=== PATIENT | female | born 1950 | race Caucasian/White ===

== ENCOUNTER 2017-07-21 09:48 | Inpatient (IN) | payer BC, OTHER ==
[2017-07-21] MEDS ORDERED: DUONEB 0.5 MG/3 MG ONE (13:15)
[2017-07-21] MEDS ORDERED: SALINE 3% 15 ML NEB TX ONE (13:15)
[2017-07-21] MEDS ORDERED: DUONEB 0.5 MG/3 MG NEB SCH ×2 (13:19→14:08)
[2017-07-21] MEDS: SALINE 3% 15 ML NEB TX NEB ONE ×2 (13:19→13:27)
[2017-07-21] MEDS ORDERED: REFLEX: PROVENTIL NEB & PulmiCORT NEB~ NEB SCH (14:08)
[2017-07-21] MEDS ORDERED: NS 1/2 1000 ML IV 1,000 ML IV SCH (14:08)
[2017-07-21 14:26] VITALS: BMI 46.8
--- NOTE | 2017-07-21 14:32 | RAD ---
Examination: Chest, PA and lateral views History: Hypertension, weakness SOB Comparison reference: None Findings: The heart is enlarged, the pulmonary vessels congested and indistinct. There is a small lef t pleural effusion. A left subclavian injection port terminates in the SVC. Impression: Cardiomegaly with pulmonary vascular and pleural changes of CHF. No definite pneumonia. Reported By:
[2017-07-21 15:25] LABS: BASOPHILS # (AUTO) 0.1 X10^3/uL (0.0-0.1); BASOPHILS % (AUTO) 0.7 % (0.2-1.0); EOSINOPHILS # (AUTO) 0.1 x10^3/uL (0.0-0.2); EOSINOPHILS % (AUTO) 0.7 % (0.9-2.9); HEMOGLOBIN 11.5 g/dL (12.0-16.0); LYMPHOCYTES # (AUTO) 1.5 X10^3/uL (1.3-2.9); LYMPHOCYTES % (AUTO) 8.9 % (21.0-51.0); MEAN CORPUSCULAR HEMOGLOBIN 28.8 pg (27.0-34.0); MEAN CORPUSCULAR HGB CONC 32.9 g/dL (33.0-35.0); MEAN CORPUSCULAR VOLUME 87.5 fL (80.0-100.0); MEAN PLATELET VOLUME 8.2 fL (7.4-11.0); MONOCYTES # (AUTO) 0.7 x10^3/uL (0.3-0.8); MONOCYTES % (AUTO) 4.1 % (0.0-13.0); NEUTROPHILS % (AUTO) 85.6 % (42.0-75.0); PLATELET COUNT 419 X10^3/uL (150.0-450.0); RED CELL DISTRIBUTION WIDTH 13.8 % (11.6-16.5); WHITE BLOOD COUNT 16.4 X10^3/uL (3.6-10.0)
[2017-07-21] MEDS: TORADOL 30 MG VIAL IVP SCH ×2 (15:26→21:10)
[2017-07-21] MEDS: LEVAQUIN PREMIX IV 750 MG 750 MG/150 ML BAG IV SCH (15:27)
[2017-07-21] MEDS: ROBITUSSIN DM PO SCH ×3 (15:31→21:10)
[2017-07-21] MEDS: NS 1/2 500 ML IV 500 ML IV SCH (15:31)
[2017-07-21 15:42] LABS: ALANINE AMINOTRANSFERASE 20 Units/L (12-78); ALBUMIN 2.6 g/dL (3.4-5.0); ALKALINE PHOSPHATASE 106 Units/L (46-116); ASPARTATE AMINO TRANSFERASE 18 Units/L (15-37); BLOOD UREA NITROGEN 12 mg/dL (7-18); CALCIUM 8.4 mg/dL (8.5-10.1); CARBON DIOXIDE 24.1 mmol/L (21-32); CHLORIDE 102 mmol/L (98-107); COR CA(FOR HYPOALB) 9.5 mg/dL (8.5-10.1); COR NA(FOR HYPERGLY) 137 mmol/L (136-145); CREATININE 0.82 mg/dL (0.55-1.02); SODIUM 136 mmol/L (136-145); TOTAL PROTEIN 6.9 g/dL (6.4-8.2); eGFR BLACK RACES > 60 (>60); eGFR NON BLACK RACES > 60 (>60)
[2017-07-21] MEDS: DUONEB 0.5 MG/3 MG NEB SCH ×2 (16:45→20:33)
[2017-07-21] MEDS: PULMICORT NEB TX 0.5 MG NEB SCH (20:33)
[2017-07-22] MEDS: DUONEB 0.5 MG/3 MG NEB SCH ×6 (01:10→20:49)
[2017-07-22] MEDS: NS 1/2 500 ML IV 500 ML IV SCH ×2 (01:47→21:36)
[2017-07-22] MEDS ORDERED: NS 500 ML IV 500 ML IV ONE (04:45)
[2017-07-22] MEDS ORDERED: NS 1/2 1000 ML IV 1,000 ML IV ONE (04:53)
[2017-07-22 06:16] LABS: ALANINE AMINOTRANSFERASE 18 Units/L (12-78); ALBUMIN 2.5 g/dL (3.4-5.0); ALKALINE PHOSPHATASE 98 Units/L (46-116); ASPARTATE AMINO TRANSFERASE 15 Units/L (15-37); BLOOD UREA NITROGEN 11 mg/dL (7-18); CALCIUM 8.5 mg/dL (8.5-10.1); CARBON DIOXIDE 25.6 mmol/L (21-32); CHLORIDE 103 mmol/L (98-107); COR CA(FOR HYPOALB) 9.7 mg/dL (8.5-10.1); CREATININE 0.91 mg/dL (0.55-1.02); SODIUM 139 mmol/L (136-145); TOTAL PROTEIN 6.8 g/dL (6.4-8.2); eGFR BLACK RACES > 60 (>60); eGFR NON BLACK RACES > 60 (>60)
[2017-07-22 06:19] LABS: BASOPHILS % (AUTO) 0.3 % (0.2-1.0); EOSINOPHILS # (AUTO) 0.3 x10^3/uL (0.0-0.2); EOSINOPHILS % (AUTO) 2.1 % (0.9-2.9); HEMATOCRIT 33.1 % (36.0-47.0); LYMPHOCYTES % (AUTO) 16.5 % (21.0-51.0); MEAN CORPUSCULAR HEMOGLOBIN 28.9 pg (27.0-34.0); MEAN CORPUSCULAR HGB CONC 33.2 g/dL (33.0-35.0); MEAN CORPUSCULAR VOLUME 87.3 fL (80.0-100.0); MEAN PLATELET VOLUME 8.7 fL (7.4-11.0); MONOCYTES # (AUTO) 1.1 x10^3/uL (0.3-0.8); NEUTROPHILS # (AUTO) 8.9 x10^3/uL (2.2-4.8); NEUTROPHILS % (AUTO) 72.1 % (42.0-75.0); PLATELET COUNT 429 X10^3/uL (150.0-450.0); RED CELL DISTRIBUTION WIDTH 13.7 % (11.6-16.5); WHITE BLOOD COUNT 12.4 X10^3/uL (3.6-10.0)
--- NOTE | 2017-07-22 06:53 | RAD ---
Examination: AP chest History: CAP Comparison reference 07/21/2017 Findings: Continued cardiac prominence with interval improvement in pulmonary vascular dilatation. Th ere is still suggestion of small left pleural reaction. No pneumothorax or consolidation. Stable posi tion of left subclavian line. Impression: Interval improvement. No new abnormality noted. Reported By:
[2017-07-22] MEDS: TUSSIONEX PENNKINETIC SUSP PO PRN ×2 (07:06→20:16)
[2017-07-22] MEDS: LEVAQUIN PREMIX IV 750 MG 750 MG/150 ML BAG IV SCH (08:18)
[2017-07-22] MEDS: PULMICORT NEB TX 0.5 MG NEB SCH ×2 (09:08→20:49)
[2017-07-22] MEDS ORDERED: VALSARTAN 320 MG PO SCH (09:30)
[2017-07-22] MEDS ORDERED: ESOMEPRAZOLE MAGNESIUM 20 MG PO SCH (09:30)
[2017-07-22] MEDS: ROBITUSSIN DM PO SCH ×4 (09:32→20:15)
[2017-07-22] MEDS ORDERED: PHARMACY CONSULT - TPN XX SCH (10:00)
[2017-07-22] MEDS: PROCALAMINE 3 % 1,000 ML IV SCH (10:36)
[2017-07-22] MEDS: SINGULAIR TAB 10 MG PO SCH (10:36)
[2017-07-22] MEDS: LOPID PO SCH ×2 (10:36→20:15)
[2017-07-22] MEDS: CYMBALTA PO SCH ×2 (10:37→20:15)
[2017-07-22] MEDS: ALBUMIN HUMAN 25%- 100ML 100 ML IV SCH (10:37)
[2017-07-22] MEDS: THYROID PORK PO SCH (10:38)
[2017-07-22] MEDS ORDERED: TORADOL 30 MG VIAL IVP ONE (16:32)
--- NOTE | 2017-07-22 21:06 | DR.UPDATE ---
H&P Update History and Physical Update: WAS SEEN IN THE OFFICE ON 07/21/17. A H&P WAS COMPLETED PRIOR TO ADMISSION. PATIENT HAS BEEN SEEN AND EXAMINED WITH NO CHANGES NOTED TO H&P. Changes noted: NO Yes with the following:
[2017-07-23] MEDS: DUONEB 0.5 MG/3 MG NEB SCH ×6 (00:58→20:36)
[2017-07-23 06:09] LABS: BASOPHILS % (AUTO) 0.3 % (0.2-1.0); EOSINOPHILS # (AUTO) 0.5 x10^3/uL (0.0-0.2); EOSINOPHILS % (AUTO) 6.1 % (0.9-2.9); HEMOGLOBIN 9.7 g/dL (12.0-16.0); LYMPHOCYTES # (AUTO) 1.6 X10^3/uL (1.3-2.9); LYMPHOCYTES % (AUTO) 19.1 % (21.0-51.0); MEAN CORPUSCULAR HEMOGLOBIN 29.4 pg (27.0-34.0); MEAN CORPUSCULAR HGB CONC 33.5 g/dL (33.0-35.0); MEAN CORPUSCULAR VOLUME 87.8 fL (80.0-100.0); MEAN PLATELET VOLUME 8.7 fL (7.4-11.0); MONOCYTES # (AUTO) 0.9 x10^3/uL (0.3-0.8); MONOCYTES % (AUTO) 10.1 % (0.0-13.0); NEUTROPHILS # (AUTO) 5.5 x10^3/uL (2.2-4.8); NEUTROPHILS % (AUTO) 64.4 % (42.0-75.0); PLATELET COUNT 375 X10^3/uL (150.0-450.0); RED CELL DISTRIBUTION WIDTH 13.5 % (11.6-16.5); WHITE BLOOD COUNT 8.5 X10^3/uL (3.6-10.0)
[2017-07-23 06:21] LABS: ALANINE AMINOTRANSFERASE 18 Units/L (12-78); ALBUMIN 2.4 g/dL (3.4-5.0); ALKALINE PHOSPHATASE 91 Units/L (46-116); ASPARTATE AMINO TRANSFERASE 17 Units/L (15-37); BLOOD UREA NITROGEN 10 mg/dL (7-18); CARBON DIOXIDE 25.4 mmol/L (21-32); CHLORIDE 105 mmol/L (98-107); COR CA(FOR HYPOALB) 9.3 mg/dL (8.5-10.1); CREATININE 0.75 mg/dL (0.55-1.02); SODIUM 139 mmol/L (136-145); TOTAL PROTEIN 6.2 g/dL (6.4-8.2); eGFR BLACK RACES > 60 (>60); eGFR NON BLACK RACES > 60 (>60)
[2017-07-23] MEDS: SINGULAIR TAB 10 MG PO SCH (08:28)
[2017-07-23] MEDS: ROBITUSSIN DM PO SCH ×4 (08:28→20:41)
[2017-07-23] MEDS: MILK OF MAGNESIA PO SCH ×2 (08:28→11:13)
[2017-07-23] MEDS: LOPID PO SCH ×2 (08:28→20:40)
[2017-07-23] MEDS: DIOVAN TAB 160 MG PO SCH (08:28)
[2017-07-23] MEDS: ALBUMIN HUMAN 25%- 100ML 100 ML IV SCH (08:33)
[2017-07-23] MEDS: LEVAQUIN PREMIX IV 750 MG 750 MG/150 ML BAG IV SCH (08:33)
[2017-07-23] MEDS: THYROID PORK PO SCH (08:33)
[2017-07-23] MEDS: COLACE CAP 100 MG PO SCH ×2 (08:34→20:40)
[2017-07-23] MEDS: CYMBALTA PO SCH ×2 (08:34→20:40)
[2017-07-23] MEDS: PULMICORT NEB TX 0.5 MG NEB SCH ×2 (09:11→20:36)
[2017-07-23] MEDS: PROCALAMINE 3 % 1,000 ML IV SCH (11:13)
[2017-07-23] MEDS: NS 1/2 500 ML IV 500 ML IV SCH (13:04)
[2017-07-23] MEDS ORDERED: TYLENOL 325 MG TAB PO PRN (20:33)
[2017-07-23] MEDS: TUSSIONEX PENNKINETIC SUSP PO PRN (20:40)
[2017-07-24] MEDS: DUONEB 0.5 MG/3 MG NEB SCH ×6 (00:42→20:19)
[2017-07-24] MEDS: TUSSIONEX PENNKINETIC SUSP PO PRN ×2 (02:58→13:53)
[2017-07-24] MEDS: NS 1/2 500 ML IV 500 ML IV SCH ×2 (03:00→13:53)
[2017-07-24 05:31] LABS: BASOPHILS # (AUTO) 0.1 X10^3/uL (0.0-0.1); BASOPHILS % (AUTO) 0.6 % (0.2-1.0); EOSINOPHILS # (AUTO) 0.4 x10^3/uL (0.0-0.2); EOSINOPHILS % (AUTO) 4.7 % (0.9-2.9); HEMATOCRIT 28.8 % (36.0-47.0); HEMOGLOBIN 9.6 g/dL (12.0-16.0); LYMPHOCYTES # (AUTO) 1.7 X10^3/uL (1.3-2.9); LYMPHOCYTES % (AUTO) 19.5 % (21.0-51.0); MEAN CORPUSCULAR HEMOGLOBIN 29.4 pg (27.0-34.0); MEAN CORPUSCULAR HGB CONC 33.4 g/dL (33.0-35.0); MEAN PLATELET VOLUME 8.3 fL (7.4-11.0); MONOCYTES # (AUTO) 0.9 x10^3/uL (0.3-0.8); MONOCYTES % (AUTO) 9.9 % (0.0-13.0); NEUTROPHILS # (AUTO) 5.8 x10^3/uL (2.2-4.8); NEUTROPHILS % (AUTO) 65.3 % (42.0-75.0); PLATELET COUNT 440 X10^3/uL (150.0-450.0); RED BLOOD COUNT 3.27 X10^6/uL (3.5-5.4); RED CELL DISTRIBUTION WIDTH 13.9 % (11.6-16.5); WHITE BLOOD COUNT 8.9 X10^3/uL (3.6-10.0)
[2017-07-24 05:58] LABS: ALANINE AMINOTRANSFERASE 24 Units/L (12-78); ALBUMIN 2.5 g/dL (3.4-5.0); ALKALINE PHOSPHATASE 108 Units/L (46-116); ASPARTATE AMINO TRANSFERASE 23 Units/L (15-37); BLOOD UREA NITROGEN 8 mg/dL (7-18); CALCIUM 8.2 mg/dL (8.5-10.1); CARBON DIOXIDE 24.8 mmol/L (21-32); CHLORIDE 105 mmol/L (98-107); COR CA(FOR HYPOALB) 9.4 mg/dL (8.5-10.1); CREATININE 0.75 mg/dL (0.55-1.02); SODIUM 138 mmol/L (136-145); TOTAL PROTEIN 6.3 g/dL (6.4-8.2); eGFR BLACK RACES > 60 (>60); eGFR NON BLACK RACES > 60 (>60)
[2017-07-24] MEDS: ALBUMIN HUMAN 25%- 100ML 100 ML IV SCH (09:15)
[2017-07-24] MEDS: LEVAQUIN PREMIX IV 750 MG 750 MG/150 ML BAG IV SCH (09:15)
[2017-07-24] MEDS: DIOVAN TAB 160 MG PO SCH (09:16)
[2017-07-24] MEDS: LOPID PO SCH ×2 (09:16→20:54)
[2017-07-24] MEDS: ROBITUSSIN DM PO SCH ×4 (09:16→20:54)
[2017-07-24] MEDS: MILK OF MAGNESIA PO SCH (09:16)
[2017-07-24] MEDS: SINGULAIR TAB 10 MG PO SCH (09:16)
[2017-07-24] MEDS: CYMBALTA PO SCH ×2 (09:19→20:54)
[2017-07-24] MEDS: THYROID PORK PO SCH (09:20)
[2017-07-24] MEDS: PULMICORT NEB TX 0.5 MG NEB SCH ×2 (09:35→20:19)
[2017-07-24] MEDS: PROCALAMINE 3 % 1,000 ML IV SCH (13:54)
[2017-07-24] MEDS: COLACE CAP 100 MG PO SCH (20:55)
[2017-07-25] MEDS: DUONEB 0.5 MG/3 MG NEB SCH ×6 (01:05→21:12)
[2017-07-25] MEDS: TUSSIONEX PENNKINETIC SUSP PO PRN ×2 (01:26→16:48)
--- NOTE | 2017-07-25 06:06 | RAD ---
Examination: Chest, PA and lateral views History: Pneumonia Comparison reference 07/22/2017 Findings: Continued upper normal heart size with vascular congestion. There is a very small right ple ural effusion, and a somewhat larger left pleural effusion. Interlobar fissures are prominent. There is an area of infiltrate in the left lower lung. Stable position of injection port. Impression: Continued cardiac prominence. Asymmetric pleural effusions with left lower lobe infiltrat e/atelectasis. Reported By:
[2017-07-25 06:15] LABS: BASOPHILS # (AUTO) 0.1 X10^3/uL (0.0-0.1); BASOPHILS % (AUTO) 0.8 % (0.2-1.0); EOSINOPHILS # (AUTO) 0.7 x10^3/uL (0.0-0.2); EOSINOPHILS % (AUTO) 7.8 % (0.9-2.9); HEMATOCRIT 28.7 % (36.0-47.0); HEMOGLOBIN 9.7 g/dL (12.0-16.0); LYMPHOCYTES # (AUTO) 2.1 X10^3/uL (1.3-2.9); LYMPHOCYTES % (AUTO) 24.3 % (21.0-51.0); MEAN CORPUSCULAR HEMOGLOBIN 29.4 pg (27.0-34.0); MEAN CORPUSCULAR HGB CONC 33.9 g/dL (33.0-35.0); MEAN CORPUSCULAR VOLUME 86.8 fL (80.0-100.0); MEAN PLATELET VOLUME 8.2 fL (7.4-11.0); MONOCYTES # (AUTO) 0.8 x10^3/uL (0.3-0.8); MONOCYTES % (AUTO) 9.2 % (0.0-13.0); NEUTROPHILS % (AUTO) 57.9 % (42.0-75.0); PLATELET COUNT 455 X10^3/uL (150.0-450.0); RED CELL DISTRIBUTION WIDTH 13.6 % (11.6-16.5); WHITE BLOOD COUNT 8.6 X10^3/uL (3.6-10.0)
[2017-07-25 06:41] LABS: ALANINE AMINOTRANSFERASE 27 Units/L (12-78); ALBUMIN 2.8 g/dL (3.4-5.0); ALKALINE PHOSPHATASE 116 Units/L (46-116); ASPARTATE AMINO TRANSFERASE 27 Units/L (15-37); BLOOD UREA NITROGEN 10 mg/dL (7-18); CALCIUM 8.6 mg/dL (8.5-10.1); CARBON DIOXIDE 25.6 mmol/L (21-32); CHLORIDE 104 mmol/L (98-107); COR CA(FOR HYPOALB) 9.6 mg/dL (8.5-10.1); CREATININE 0.77 mg/dL (0.55-1.02); SODIUM 138 mmol/L (136-145); TOTAL PROTEIN 6.6 g/dL (6.4-8.2); eGFR BLACK RACES > 60 (>60); eGFR NON BLACK RACES > 60 (>60)
[2017-07-25] MEDS: LEVAQUIN PREMIX IV 750 MG 750 MG/150 ML BAG IV SCH (09:01)
[2017-07-25] MEDS: ROBITUSSIN DM PO SCH ×4 (09:01→20:54)
[2017-07-25] MEDS: MILK OF MAGNESIA PO SCH ×2 (09:01)
[2017-07-25] MEDS: DIOVAN TAB 160 MG PO SCH (09:01)
[2017-07-25] MEDS: SINGULAIR TAB 10 MG PO SCH (09:02)
[2017-07-25] MEDS: LOPID PO SCH ×2 (09:02→20:54)
[2017-07-25] MEDS: ALBUMIN HUMAN 25%- 100ML 100 ML IV SCH (09:02)
[2017-07-25] MEDS: THYROID PORK PO SCH (09:11)
[2017-07-25] MEDS: CYMBALTA PO SCH ×2 (09:11→20:54)
[2017-07-25] MEDS: PULMICORT NEB TX 0.5 MG NEB SCH ×2 (09:30→21:12)
[2017-07-25] MEDS ORDERED: LASIX IVP SCH (17:00)
[2017-07-25] MEDS: COLACE CAP 100 MG PO SCH (20:54)
[2017-07-26] MEDS: DUONEB 0.5 MG/3 MG NEB SCH ×6 (01:00→21:05)
[2017-07-26] MEDS: TUSSIONEX PENNKINETIC SUSP PO PRN ×2 (04:34→17:13)
[2017-07-26] MEDS: NS 1/2 500 ML IV 500 ML IV SCH ×4 (05:34→15:17)
[2017-07-26 06:00] LABS: BASOPHILS # (AUTO) 0.1 X10^3/uL (0.0-0.1); EOSINOPHILS # (AUTO) 0.8 x10^3/uL (0.0-0.2); EOSINOPHILS % (AUTO) 7.7 % (0.9-2.9); HEMATOCRIT 30.3 % (36.0-47.0); HEMOGLOBIN 10.2 g/dL (12.0-16.0); LYMPHOCYTES # (AUTO) 2.2 X10^3/uL (1.3-2.9); LYMPHOCYTES % (AUTO) 22.2 % (21.0-51.0); MEAN CORPUSCULAR HEMOGLOBIN 29.5 pg (27.0-34.0); MEAN CORPUSCULAR HGB CONC 33.7 g/dL (33.0-35.0); MEAN CORPUSCULAR VOLUME 87.5 fL (80.0-100.0); MEAN PLATELET VOLUME 8.2 fL (7.4-11.0); MONOCYTES # (AUTO) 0.9 x10^3/uL (0.3-0.8); NEUTROPHILS % (AUTO) 60.1 % (42.0-75.0); PLATELET COUNT 472 X10^3/uL (150.0-450.0); RED BLOOD COUNT 3.46 X10^6/uL (3.5-5.4); RED CELL DISTRIBUTION WIDTH 13.8 % (11.6-16.5); WHITE BLOOD COUNT 9.9 X10^3/uL (3.6-10.0)
[2017-07-26 06:05] LABS: BLOOD UREA NITROGEN 11 mg/dL (7-18); CALCIUM 8.8 mg/dL (8.5-10.1); CARBON DIOXIDE 27.3 mmol/L (21-32); CHLORIDE 101 mmol/L (98-107); CREATININE 0.78 mg/dL (0.55-1.02); SODIUM 137 mmol/L (136-145); eGFR BLACK RACES > 60 (>60); eGFR NON BLACK RACES > 60 (>60)
[2017-07-26 06:16] LABS: PLATELET MORPHOLOGY COMMENT NORMAL (NORMAL)
[2017-07-26] MEDS: CYMBALTA PO SCH ×2 (08:23→20:32)
[2017-07-26] MEDS: ALBUMIN HUMAN 25%- 100ML 100 ML IV SCH (08:23)
[2017-07-26] MEDS: SINGULAIR TAB 10 MG PO SCH (08:24)
[2017-07-26] MEDS: MILK OF MAGNESIA PO SCH (08:24)
[2017-07-26] MEDS: LEVAQUIN PREMIX IV 750 MG 750 MG/150 ML BAG IV SCH (08:24)
[2017-07-26] MEDS: THYROID PORK PO SCH (08:24)
[2017-07-26] MEDS: LOPID PO SCH ×2 (08:24→20:32)
[2017-07-26] MEDS: DIOVAN TAB 160 MG PO SCH (08:24)
[2017-07-26] MEDS: ROBITUSSIN DM PO SCH ×4 (08:24→20:32)
[2017-07-26] MEDS: PULMICORT NEB TX 0.5 MG NEB SCH ×2 (09:26→21:05)
[2017-07-26] MEDS ORDERED: NS 1000 ML 0 ML ONE (12:35)
[2017-07-26] MEDS ORDERED: NS 1/2 1000 ML IV 1,000 ML IV ONE (12:37)
[2017-07-26] MEDS ORDERED: NS 250 ML IV 250 ML IV ONE (13:13)
[2017-07-26] MEDS ORDERED: ZITHROMAX INJ 500 MG VIAL IV ONE (13:13)
[2017-07-26] MEDS ORDERED: MAALOX or MYLANTA PO PRN (13:31)
[2017-07-26] MEDS ORDERED: MAALOX or MYLANTA ONE (13:31)
[2017-07-26] MEDS ORDERED: PROTONIX INJ 40 MG VIAL ONE (13:32)
[2017-07-26] MEDS: ZITHROMAX INJ 500 MG VIAL 500 MG in NS 250 ML IV 250 ML IV SCH (13:36)
[2017-07-26] MEDS: PROTONIX INJ 40 MG VIAL IVP SCH (13:37)
[2017-07-26] MEDS: LASIX IVP SCH (13:37)
[2017-07-26] MEDS: COLACE CAP 100 MG PO SCH (20:32)
[2017-07-27] MEDS: DUONEB 0.5 MG/3 MG NEB SCH ×6 (01:22→21:54)
[2017-07-27] MEDS ORDERED: ROBITUSSIN DM PO ONE (01:39)
[2017-07-27] MEDS: NS 1/2 500 ML IV 500 ML IV SCH ×4 (01:46→21:41)
[2017-07-27 06:06] LABS: BASOPHILS # (AUTO) 0.1 X10^3/uL (0.0-0.1); BASOPHILS % (AUTO) 0.7 % (0.2-1.0); EOSINOPHILS # (AUTO) 0.8 x10^3/uL (0.0-0.2); EOSINOPHILS % (AUTO) 8.3 % (0.9-2.9); HEMATOCRIT 30.8 % (36.0-47.0); HEMOGLOBIN 10.5 g/dL (12.0-16.0); LYMPHOCYTES # (AUTO) 1.7 X10^3/uL (1.3-2.9); LYMPHOCYTES % (AUTO) 18.1 % (21.0-51.0); MEAN CORPUSCULAR HEMOGLOBIN 29.6 pg (27.0-34.0); MEAN CORPUSCULAR HGB CONC 34.1 g/dL (33.0-35.0); MEAN CORPUSCULAR VOLUME 86.7 fL (80.0-100.0); MEAN PLATELET VOLUME 8.1 fL (7.4-11.0); MONOCYTES # (AUTO) 0.8 x10^3/uL (0.3-0.8); MONOCYTES % (AUTO) 8.3 % (0.0-13.0); NEUTROPHILS # (AUTO) 6.1 x10^3/uL (2.2-4.8); NEUTROPHILS % (AUTO) 64.6 % (42.0-75.0); PLATELET COUNT 494 X10^3/uL (150.0-450.0); RED BLOOD COUNT 3.55 X10^6/uL (3.5-5.4); RED CELL DISTRIBUTION WIDTH 13.8 % (11.6-16.5); WHITE BLOOD COUNT 9.5 X10^3/uL (3.6-10.0)
[2017-07-27 06:12] LABS: ALANINE AMINOTRANSFERASE 20 Units/L (12-78); ALBUMIN 3.3 g/dL (3.4-5.0); ALKALINE PHOSPHATASE 111 Units/L (46-116); ASPARTATE AMINO TRANSFERASE 12 Units/L (15-37); BLOOD UREA NITROGEN 15 mg/dL (7-18); CARBON DIOXIDE 29.2 mmol/L (21-32); CHLORIDE 98 mmol/L (98-107); COR CA(FOR HYPOALB) 9.6 mg/dL (8.5-10.1); CREATININE 1.06 mg/dL (0.55-1.02); SODIUM 137 mmol/L (136-145); TOTAL PROTEIN 7.1 g/dL (6.4-8.2); eGFR BLACK RACES > 60 (>60); eGFR NON BLACK RACES 55 (>60)
--- NOTE | 2017-07-27 06:58 | RAD ---
HISTORY: Follow-up pneumonia Study: Chest PA and lateral Comparison: 07/25/2017, 07/22/2017 Findings: There is a poor present on the left. The heart is within normal limits in size. The vonda are normal. The lungs are well inflated and free of acute alveolar infiltrates. No definite pleural effusions are identified. There is minimal subsegmental atelectasis in the left costophrenic angle. The bony thora x is unremarkable. IMPRESSION: No definite acute infiltrates Minimal subsegmental atelectasis left costophrenic angle Reported By:
[2017-07-27] MEDS: ZITHROMAX INJ 500 MG VIAL 500 MG in NS 250 ML IV 250 ML IV SCH (08:00)
[2017-07-27] MEDS: THYROID PORK PO SCH (08:00)
[2017-07-27] MEDS: DIOVAN TAB 160 MG PO SCH (08:00)
[2017-07-27] MEDS: PROTONIX INJ 40 MG VIAL IVP SCH (08:00)
[2017-07-27] MEDS: CYMBALTA PO SCH ×2 (08:00→21:14)
[2017-07-27] MEDS: SINGULAIR TAB 10 MG PO SCH (08:00)
[2017-07-27] MEDS: MILK OF MAGNESIA PO SCH (08:00)
[2017-07-27] MEDS: LEVAQUIN PREMIX IV 750 MG 750 MG/150 ML BAG IV SCH (08:00)
[2017-07-27] MEDS: ROBITUSSIN DM PO SCH ×3 (08:00→16:52)
[2017-07-27] MEDS: LOPID PO SCH ×2 (08:00→21:14)
[2017-07-27] MEDS: PULMICORT NEB TX 0.5 MG NEB SCH ×3 (08:56→22:12)
[2017-07-27] MEDS: LASIX IVP SCH (12:16)
[2017-07-27] MEDS: COLACE CAP 100 MG PO SCH (21:14)
[2017-07-28] MEDS: ROBITUSSIN DM PO SCH ×5 (00:02→21:06)
[2017-07-28] MEDS: DUONEB 0.5 MG/3 MG NEB SCH ×6 (01:15→20:43)
[2017-07-28 05:02] LABS: BASOPHILS # (AUTO) 0.1 X10^3/uL (0.0-0.1); BASOPHILS % (AUTO) 0.9 % (0.2-1.0); EOSINOPHILS # (AUTO) 0.8 x10^3/uL (0.0-0.2); EOSINOPHILS % (AUTO) 9.2 % (0.9-2.9); HEMATOCRIT 34.1 % (36.0-47.0); HEMOGLOBIN 11.2 g/dL (12.0-16.0); LYMPHOCYTES # (AUTO) 2.2 X10^3/uL (1.3-2.9); LYMPHOCYTES % (AUTO) 23.9 % (21.0-51.0); MEAN CORPUSCULAR HEMOGLOBIN 28.8 pg (27.0-34.0); MEAN CORPUSCULAR HGB CONC 32.7 g/dL (33.0-35.0); MEAN PLATELET VOLUME 8.1 fL (7.4-11.0); MONOCYTES # (AUTO) 0.7 x10^3/uL (0.3-0.8); NEUTROPHILS # (AUTO) 5.2 x10^3/uL (2.2-4.8); PLATELET COUNT 515 X10^3/uL (150.0-450.0); RED BLOOD COUNT 3.88 X10^6/uL (3.5-5.4); RED CELL DISTRIBUTION WIDTH 14.1 % (11.6-16.5)
[2017-07-28] MEDS: TUSSIONEX PENNKINETIC SUSP PO PRN ×2 (05:17→17:15)
[2017-07-28 05:19] LABS: ALANINE AMINOTRANSFERASE 19 Units/L (12-78); ALBUMIN 3.4 g/dL (3.4-5.0); ALKALINE PHOSPHATASE 114 Units/L (46-116); ASPARTATE AMINO TRANSFERASE 14 Units/L (15-37); BLOOD UREA NITROGEN 17 mg/dL (7-18); CALCIUM 9.5 mg/dL (8.5-10.1); CARBON DIOXIDE 30.2 mmol/L (21-32); CHLORIDE 98 mmol/L (98-107); CREATININE 1.12 mg/dL (0.55-1.02); SODIUM 139 mmol/L (136-145); TOTAL PROTEIN 7.5 g/dL (6.4-8.2); eGFR BLACK RACES > 60 (>60); eGFR NON BLACK RACES 52 (>60)
--- NOTE | 2017-07-28 07:25 | RAD ---
Examination: PA and lateral chest History: Pneumonia Comparison reference 07/27/2017 Findings: Continued normal heart size with essentially clear lungs and pleural spaces. A small fibrot ic scar suggested left base. No evidence for acute pneumonia, pulmonary edema or pleural effusion. St able position of left subclavian injection port. Impression: No acute chest disease demonstrated. Reported By:
[2017-07-28] MEDS: PULMICORT NEB TX 0.5 MG NEB SCH ×2 (08:32→20:43)
[2017-07-28] MEDS: CYMBALTA PO SCH ×2 (10:19→21:09)
[2017-07-28] MEDS: ZITHROMAX INJ 500 MG VIAL 500 MG in NS 250 ML IV 250 ML IV SCH (10:20)
[2017-07-28] MEDS: LOPID PO SCH ×2 (10:20→21:06)
[2017-07-28] MEDS: DIOVAN TAB 160 MG PO SCH (10:20)
[2017-07-28] MEDS: MILK OF MAGNESIA PO SCH (10:21)
[2017-07-28] MEDS: PROTONIX INJ 40 MG VIAL IVP SCH (10:21)
[2017-07-28] MEDS: THYROID PORK PO SCH (10:21)
[2017-07-28] MEDS: SINGULAIR TAB 10 MG PO SCH (10:21)
[2017-07-28] MEDS: LEVAQUIN PREMIX IV 750 MG 750 MG/150 ML BAG IV SCH (10:21)
[2017-07-28] MEDS: NYSTATIN SUSP MT SCH ×4 (10:22→21:06)
[2017-07-28] MEDS: DIFLUCAN 200 MG IV PREMIX* 200 MG/100 ML BAG IV SCH (10:22)
[2017-07-28] MEDS: LASIX IVP SCH (10:22)
[2017-07-28 10:41] LABS: ABG BASE EXCESS 5.5 mmol/L (-2.0-2.0); ABG HCO3 28.9 mmol/L (22-26)
[2017-07-28 10:42] LABS: ABG ALLEN TEST POS
[2017-07-28] MEDS: COLACE CAP 100 MG PO SCH (21:06)
[2017-07-29] MEDS: DUONEB 0.5 MG/3 MG NEB SCH ×3 (01:17→09:54)
[2017-07-29] MEDS: NS 1/2 500 ML IV 500 ML IV SCH ×2 (02:35→03:06)
[2017-07-29 04:36] LABS: BASOPHILS # (AUTO) 0.3 X10^3/uL (0.0-0.1); BASOPHILS % (AUTO) 3.3 % (0.2-1.0); EOSINOPHILS # (AUTO) 0.8 x10^3/uL (0.0-0.2); EOSINOPHILS % (AUTO) 8.6 % (0.9-2.9); HEMATOCRIT 31.3 % (36.0-47.0); HEMOGLOBIN 10.3 g/dL (12.0-16.0); LYMPHOCYTES # (AUTO) 1.6 X10^3/uL (1.3-2.9); LYMPHOCYTES % (AUTO) 17.5 % (21.0-51.0); MEAN CORPUSCULAR HEMOGLOBIN 28.9 pg (27.0-34.0); MEAN CORPUSCULAR HGB CONC 32.9 g/dL (33.0-35.0); MEAN CORPUSCULAR VOLUME 87.7 fL (80.0-100.0); MEAN PLATELET VOLUME 7.9 fL (7.4-11.0); MONOCYTES # (AUTO) 0.6 x10^3/uL (0.3-0.8); MONOCYTES % (AUTO) 6.3 % (0.0-13.0); NEUTROPHILS % (AUTO) 64.3 % (42.0-75.0); PLATELET COUNT 469 X10^3/uL (150.0-450.0); RED BLOOD COUNT 3.57 X10^6/uL (3.5-5.4); WHITE BLOOD COUNT 9.3 X10^3/uL (3.6-10.0)
[2017-07-29 04:57] LABS: ALANINE AMINOTRANSFERASE 15 Units/L (12-78); ALKALINE PHOSPHATASE 98 Units/L (46-116); ASPARTATE AMINO TRANSFERASE 10 Units/L (15-37); BLOOD UREA NITROGEN 17 mg/dL (7-18); CALCIUM 8.9 mg/dL (8.5-10.1); CARBON DIOXIDE 28.2 mmol/L (21-32); CHLORIDE 101 mmol/L (98-107); COR CA(FOR HYPOALB) 9.7 mg/dL (8.5-10.1); CREATININE 1.15 mg/dL (0.55-1.02); SODIUM 137 mmol/L (136-145); TOTAL PROTEIN 6.7 g/dL (6.4-8.2); eGFR BLACK RACES > 60 (>60); eGFR NON BLACK RACES 50 (>60)
[2017-07-29] MEDS: ZITHROMAX INJ 500 MG VIAL 500 MG in NS 250 ML IV 250 ML IV SCH (09:36)
[2017-07-29] MEDS: CYMBALTA PO SCH (09:36)
[2017-07-29] MEDS: NYSTATIN SUSP MT SCH ×2 (09:37→13:24)
[2017-07-29] MEDS: LEVAQUIN PREMIX IV 750 MG 750 MG/150 ML BAG IV SCH (09:37)
[2017-07-29] MEDS: PROTONIX INJ 40 MG VIAL IVP SCH (09:37)
[2017-07-29] MEDS: SINGULAIR TAB 10 MG PO SCH (09:37)
[2017-07-29] MEDS: THYROID PORK PO SCH (09:37)
[2017-07-29] MEDS: LASIX IVP SCH (09:37)
[2017-07-29] MEDS: ROBITUSSIN DM PO SCH ×2 (09:37→13:24)
[2017-07-29] MEDS: MILK OF MAGNESIA PO SCH (09:37)
[2017-07-29] MEDS: LOPID PO SCH (09:37)
[2017-07-29] MEDS: DIOVAN TAB 160 MG PO SCH (09:38)
[2017-07-29] MEDS: DIFLUCAN 200 MG IV PREMIX* 200 MG/100 ML BAG IV SCH (09:38)
[2017-07-29] MEDS: PULMICORT NEB TX 0.5 MG NEB SCH (09:54)
[2017-07-29 12:57] VITALS: BP 97/48
[2017-07-29] MEDS: TUSSIONEX PENNKINETIC SUSP PO PRN (13:24)
== END 2017-07-29 16:00 | disposition home or self-care (01) | DRG 202 ==
LOC: MED/SURG 09:48 → UNDOADMIN 09:48 → MED/SURG 11:26
PROVIDERS: ADMIT Internal Medicine; ATTEND Internal Medicine
DX: J20.8 Acute bronchitis due to other specified organisms (principal); R50.9 Fever, unspecified; R07.89 Other chest pain; R26.89 Other abnormalities of gait and mobility; J18.8 Other pneumonia, unspecified organism
CPT/HCPCS: 36415; 36600; 71010; 71020; 80048; 80053; 82803; 85025; 87040; 87070; 87205; 87502; 94640; 94760; A4222; B5200; C9113; P9047; J0456; J1450; J1885; J1940; J1956; J7620; J7626